=== PATIENT | female | born 1980 | race Caucasian/White ===

== ENCOUNTER 2016-09-24 23:22 | Inpatient (IN) | payer OTHER ==
[~2016-09-24] VITALS: Ht 162.6 cm; Wt 78.0 kg
[~2016-09-24 23:22] MED LIST: PRENTAB26 PO
[2016-09-25 00:01] VITALS: Ht 162.6 cm; Wt 78.0 kg
[2016-09-25] MEDS ORDERED: LACTATED RINGER'S 1000ML 1,000 ML IV PRN (00:22)
[2016-09-25 00:41] LABS: MEAN CELL VOLUME 94.4 fL (80-100); MEAN CORPUSCULAR HEMOGLOBIN 32.8 pg (25-34); MEAN CORPUSCULAR HGB CONC 34.7 g/dl (32-36); MEAN PLATELET VOLUME 10.6 fL (7.4-10.4); PLATELET COUNT 184 K/uL (130-400); WHITE BLOOD COUNT 10.83 K/uL (4.8-10.8)
[2016-09-25] MEDS ORDERED: OXYTOCIN 30 UNITS/500ML NSS IV PRN ×2 (08:30→16:15)
[2016-09-25] MEDS ORDERED: LACTATED RINGER'S 1000ML 500 ML IV PRN ×2 (08:30→11:43)
[2016-09-25] MEDS ORDERED: BUPIVACAINE 0.25% 30 ML VIAL ONE (11:04)
[2016-09-25] MEDS ORDERED: EpHEDrine SULFATE INJ 50 MG/ML AMP ONE (11:04)
[2016-09-25] MEDS ORDERED: FENTANYL 2MCG/ML ROPIV 1.25MG/ML 100ML BAG EPI ONE (11:05)
[2016-09-25] MEDS ORDERED: FENTANYL CITRATE INJ 50 MCG/1 ML 2 ML VIAL ONE (11:05)
[2016-09-25] MEDS: LACTATED RINGER'S 1000ML 1,000 ML IV SCH ×3 (11:39→15:40)
[2016-09-25] MEDS ORDERED: NALOXONE HCL INJ 1 MG in SODIUM CHLORIDE 0.9% 1000ML 1,000 ML IV PRN (11:43)
[2016-09-25] MEDS ORDERED: ONDANSETRON INJ 2 MG/ML 2 ML VIAL IV PRN (11:45)
[2016-09-25] MEDS ORDERED: NALBUPHINE HCL INJ 10 MG/ML AMP IV PRN (11:45)
[2016-09-25] MEDS ORDERED: FENTANYL 2MCG/ML ROPIV 1.25MG/ML 100ML BAG EPI PRN (11:45)
[2016-09-25] MEDS ORDERED: EpHEDrine SULFATE INJ 50 MG/ML AMP IV PRN (11:45)
[2016-09-25] MEDS ORDERED: NALOXONE HCL INJ 0.4 MG/1 ML VIAL/CARP IV PRN (11:45)
[2016-09-25] MEDS ORDERED: DiphenhydrAMINE HCL 50 MG/ML VIAL IV PRN (11:45)
[2016-09-25] MEDS ORDERED: METHYLERGONOVINE MALEATE 0.2 MG/ML AMP ONE (16:07)
[2016-09-25] MEDS ORDERED: METHYLERGONOVINE MALEATE 0.2 MG/ML AMP IM ONE (16:15)
[2016-09-25] MEDS ORDERED: OXYCODONE/ACETAMINOPHEN 5-325 TAB PO PRN (16:15)
[2016-09-25] MEDS ORDERED: LANOLIN OINT EXT PRN ×2 (16:15)
[2016-09-25] MEDS ORDERED: SUPERCREAM 0.870 % 15GM JAR EXT PRN (16:15)
[2016-09-25] MEDS ORDERED: IBUPROFEN 600 MG TAB PO PRN (16:15)
[2016-09-25] MEDS ORDERED: ACETAMINOPHEN/CODEINE 300/30MG TAB PO PRN ×2 (16:15)
[2016-09-25] MEDS ORDERED: BENZOCAINE 20% AER SPR 82.5 GM CAN EXT PRN (16:15)
[2016-09-25] MEDS ORDERED: ACETAMINOPHEN 325 MG TAB PO PRN (16:15)
[2016-09-25] MEDS ORDERED: HYDROCORTISONE ACETATE 25 MG SUPP PR PRN (16:15)
--- NOTE | 2016-09-25 17:26 | Anesthesia Procedure Note ---
Anesthesia Epidural Removal Nt Date & Time Sep 25, 2016 at 17:26 Notes Mental Status: alert / awake / arousable, participated in evaluation Nausea / Vomiting: adequately controlled Pain: adequately controlled Airway Patency, RR, SpO2: stable & adequate BP & HR: stable & adequate Hydration State: stable & adequate Neuraxial Anesthesia: was administered Anesthetic Complications: no major complications apparent, pt satisfied with anesthetic care Epidural: removed without complications, with tip intact
[2016-09-25 19:15] VITALS: BP 118/71; PULSE 74; TEMP 36.8; O2SAT 98
[2016-09-25] MEDS ORDERED: DOCUSATE SODIUM 100 MG CAP PO SCH (20:00)
[2016-09-26 00:30] VITALS: BP 104/64; PULSE 70; TEMP 36.8
[2016-09-26 03:55] VITALS: BP 103/66; PULSE 72; TEMP 36.4; O2SAT 99
[2016-09-26 05:58] LABS: HEMATOCRIT 31.7 % (37-47)
[2016-09-26] MEDS ORDERED: DOCUSATE SODIUM 100 MG CAP PO ONE (07:00)
--- NOTE | 2016-09-26 07:07 | DELIVERY SUMMARY ---
DATE OF OPERATION: 09/25/2016 The patient delivered a live infant female in occiput anterior presentation. There were 2 nuchal cords which were easily reduced. Infant was delivered, placed on mother's abdomen and cord clamped after 1 minute. The patient's weight is pending. Apgars 9 and 10. Placenta was spontaneously delivered. Inspection of the placenta shows a 3-vessel cord. Inspection of the perineum showed an intact perineum. Estimated blood loss was 500 mL. All instruments are removed from the vagina including sponges and retractors. Baby and mother are doing well in recovery. I attest to the content of the Intraoperative Record and any orders documented therein. Any exception s are noted below.
[2016-09-26 07:30] VITALS: BP 110/68; PULSE 68; TEMP 36.8
[2016-09-26] MEDS ORDERED: FERROUS SULFATE 325 MG TAB PO SCH (08:00)
[2016-09-26] MEDS ORDERED: PRENATAL VITAMIN TAB PO SCH (08:00)
--- NOTE | 2016-09-26 09:04 | OB/GYN Progress Note ---
[employer] Progress Note Date of Service Sep 26, 2016. Subjective conversation w/ patient, physical exam Ambulation: ambulating normally Voiding: no voiding problems Passing Gas: Yes Diet Tolerance: Regular Diet Lochia: Moderate Feeding Type: Bottle Feeding Pain: 2/10 Notes: Doing well, no concerns. Pain well controlled. Lochia decreasing. Tolerating regular diet. Ambulating without difficulty. Objective Vital Signs Date Time Temp Pulse Resp B/P (MAP) Pulse Ox O2 Delivery O2 Flow Rate FiO2 09/26/16 07:30 Room Air 09/26/16 07:30 36.8 68 20 110/68 (82) Room Air 09/26/16 03:55 36.4 72 16 103/66 (78) 99 Room Air 09/26/16 00:30 36.8 70 16 104/64 09/26/16 00:30 Room Air 09/25/16 19:15 36.8 74 18 118/71 (87) 98 Room Air 09/25/16 19:15 98 Room Air Physical Exam General Appearance: WELL-APPEARING Respiratory/Chest: chest non-tender, lungs clear Cardiovascular: regular rate, rhythm Abdomen: normal bowel sounds, soft Fundus: Firm Extremities: normal range of motion, non-tender, no calf tenderness Laboratory Results Last 24 Hours Test 09/26/16 05:46 Hemoglobin 10.5 g/dL Hematocrit 31.7 % Assessment and Plan Post- Day Number: 1 Continue Routine Care: -Continue routine care -D/C home today -F/U in 6 weeks.
--- NOTE | 2016-09-26 09:05 | Discharge Instructions ---
Discharge Instructions Date of Service Sep 26, 2016. Admission Reason for Admission: Check Rupture Discharge Discharge Diagnosis / Problem: Vaginal Delivery Discharge Goals Goal(s): Routine recovery after delivery Medications Continue Dispensed Medications: supercream, dermaplast, tucks, lansinoh Activity Recommendations Activity Limitations: per Instructions/Follow-up section . Instructions / Follow-Up Instructions / Follow-Up ACTIVITY RECOMMENDATIONS: * Gradual return to full activity over the next 2-3 weeks. * No lifting - nothing heavier than baby over the next 2-3 weeks. * Do not engage in vigorous exercise, sexual activity or sports until cleared by your physician. * Do not drive or operate any motorized equipment until cleared by your physician. * You may shower/bathe daily. BREAST CARE: If you are not breast feeding: * Wear a supportive bra 24 hours a day for one to two weeks. * Avoid stimulating your breasts and nipples as much as possible during the first few weeks after delivery. * When taking a shower, have the warm water hit your back, not breasts. * When your breasts feel full, apply ice packs. Usually three to four times a day helps ease the discomfort. * Take a mild pain medication (Tylenol/Motrin) when you are uncomfortable. If breast feeding: * Use breast milk to lubricate nipples. Lansinoh cream may be used for sore nipples. You do not need to remove cream prior to breast feeding. If using a different brand of cream, check the label for directions regarding removal of cream prior to nursing. * Wear a supportive bra. * If having problems with breasts or breast feeding, call a organizational consultant or your health care provider. EPISIOTOMY CARE: After delivery, if you have an episiotomy (stitches), the following steps will ease discomfort and aid healing. * For the first 24 hours after delivery, place ice packs next to your episiotomy to help reduce swelling. * After the first 24 hour-period, sitz baths, either portable or in the tub, are suggested. A shower with a shower arm sprayed over the episiotomy may be comforting. * Catherine care should be done after each voiding and bowel movement. Squirt warm water from a plastic bottle over the perineum (region of the body between the anus and urinary opening) and pat dry. * Use Dermoplast to ease discomfort. Shake container. [place] directly over the episiotomy. * Place a Tucks on a clean sanitary pad next to your episiotomy. OVER THE COUNTER MEDICATION: * For discomfort or pain, you may use Acetaminophen (Tylenol), Ibuprofen (Advil ), or Naproxen (Aleve) following the package directions. * For constipation you may use Colace following the package directions. SPECIAL CARE INSTRUCTIONS: When you are discharged from the hospital, it is important for you to follow the instructions listed below: * During the first week at home, you should be able to care for yourself and your baby. In addition, the usual light household activities are encouraged. * Limit your activities to the way you feel. Do not try to clean the house or move furniture. Be sensible. * If you actively engage in sports and have done so up until the time of your delivery, you may resume these activities as soon as you feel able. This may take up to one month or even longer. Use good judgment. * Continue to take your vitamins for at least six weeks after the of your baby. * Your diet need not be limited unless you were on a special diet before your delivery. Breast-feeding mothers need around 2500 calories per day and at least 64-80 ounces of fluid per day (8 to 10 glasses). * You should eat foods from the four major food groups. Crash diets or fad diets are to be avoided. Eating lean meats, fresh fruits and vegetables, low-fat dairy products, high fiber foods and a regular exercise program, will help you get back to your pre- weight without putting your health at risk. * Constipation is sometimes a problem after delivery. Take a mild laxative as needed. If breast feeding, Milk of Magnesia is acceptable to use. You may use a suppository or Fleets enema if no episiotomy. * A daily shower or tub bath is suggested. Be sure to thoroughly and gently dry the perineum. * A bloody vaginal discharge will usually continue until around four weeks post . A small amount of bleeding may continue for as long as six weeks. Vaginal discharge changes from the bright red bleeding after delivery to pink then brownish and finally yellowish-pink before becoming white and disappearing. * Bleeding may increase with activity. Your first period may come in 4-8 weeks. If you are breast feeding, your period may be delayed even longer. * [place] (sex) can begin whenever both you and your partner feel comfortable and do not have any form of genital infection. It is recommended that you wait until after your return appointment and discuss with your physician. If you have questions, please talk to your health care practitioner. A condom should be used to prevent infection and . * Foreplay, gentle intercourse and lubrication is very important the first several times to prevent pain. A water-based lubricant such as K-Y jelly or Astroglide may be used. * Tampons may be used six weeks after delivery. * Douching should be avoided for 6 weeks after delivery. * If you have RH negative blood and your baby is RH positive, you will receive RHOGAM by injection prior to discharge. The nurse will give you a card to keep with you that has the date and place that you received RHOGAM after delivery. * During your care, you had a Rubella screen done to check for the presence of rubella antibodies in your blood. If your test was negative, you will receive a Rubella vaccine prior to discharge. This vaccine may cause a fever, soreness at the injection site and flu-like symptoms. If these symptoms persist, notify your health care practitioner. is not advised for three months after a Rubella vaccine. There is a higher chance of having a baby with defects if conceived within three months of getting the vaccine. * If you were discharged 24 hours from delivery or before 48 hours: Visiting nurses will come to your home 48 hours after discharge to assess you and your baby. The visiting nurse will meet with you while you are in the hospital to arrange a time and get directions to your home. * Verbalizes understanding of car seat law as reviewed with patient nursing. * Car Seat hand-out given and reviewed with patient by nursing. * Shaken baby information reviewed with patient by nursing. Call you doctor if: * Heavy bleeding (saturating several pads an hour) or passing clots the size of your fist. * A fever >101 degrees F (38.3 degrees C) on two occasions four hours apart and/or chills. * Unusual pain in the pelvic or vaginal areas. * "Baby Blues" lasting longer than two weeks. If you have any questions or concerns, call your health care practitioner at . FOLLOW-UP VISIT: * Please call the office at to schedule a 6 week examination. It is important you keep this appointment. * It is important for you to make arrangements for either yearly or twice yearly check-ups thereafter. Current Hospital Diet Patient's current hospital diet: Regular OB Diet Discharge Diet Recommended Diet: Regular OB Diet Pending Studies Studies pending at discharge: no Medical Emergencies . Who to Call and When: Medical Emergencies: If at any time you feel your situation is an emergency, please call 911 immediately. . Non-Emergent Contact Non-Emergency issues call your: Primary Care Provider, Director Of Housing . . "Provider Documentation" section prepared by Heath Bowman. . VTE Core Measure Inpt VTE Proph given/why not?: Treatment not indicated
[2016-09-26 12:30] VITALS: BP 106/64; PULSE 72; TEMP 36.5
[2016-09-26 15:30] VITALS: BP 121/76; PULSE 75; TEMP 36.7
[2016-09-26 17:00] VITALS: BP_DIAS 76; PULSE 75; TEMP 36.7
[2016-09-26] MEDS ORDERED: BISACODYL 5 MG TABEC PO SCH (20:00)
[2016-09-27] MEDS ORDERED: BISACODYL 10 MG SUPP PR PRN (07:00)
== END 2016-09-26 17:08 | disposition home or self-care (01) | DRG 775 ==
LOC: C.LD 23:22 → C.OPB 23:22 → C.LD 09-25 00:23 → C.OPB 09-25 00:23 → C.OBG 09-25 18:35
PROVIDERS: ADMIT Obstetrics & Gynecology; ATTEND Obstetrics & Gynecology
PROC: 10E0XZZ Delivery of Products of Conception, External Approach (ICD-10-PCS; principal; 2016-09-25)
DX: O69.81X0 Labor and delivery complicated by cord around neck, without compression, not applicable or unspecified (principal); Z3A.41 41 weeks gestation of pregnancy; Z37.0 Single live birth

== ENCOUNTER 2024-12-16 21:38 | Inpatient (IN) ==
[2024-12-16 22:20] LABS: Hematocrit (blood only) 36.3 % (37.0-47.0); Hemoglobin 12.0 g/dl (12.0-16.0); Immature Granulocytes # (auto) 0.02 K/uL (0.01-0.20); Immature Granulocytes % (auto) 0.2 %; Mean Corpuscular Hemoglobin 30.3 pg (25.0-34.0); Mean Corpuscular Volume 91.7 fL (80.0-100.0); Platelet Count 189 K/uL (130-400); RDW Standard Deviation 41.0 fL (36.4-46.3); Red Blood Count 3.96 M/uL (4.20-5.40); White Blood Count 8.49 K/ul (4.8-10.8)
--- NOTE | 2024-12-16 22:21 | Emergency Department Note ---
Impression & Plan Biliary colic Admission ED Provider Note HPI: History obtained from patient. The patient is a 44-year-old female who presents emergency department with chief complaint of right upper quadrant pain that has been ongoing for the past several hours. Patient states that she has been having intermittent episodes of this type of pain for over a month now. Patient states she is actually scheduled for an elective cholecystectomy in early December with Dr. Fuentes. On arrival here to the ED the patient is hemodynamically stable, she otherwise appears to be in no acute distress. Patient states she has had nausea with the pain but she has not yet had any vomiting. ROS: - Per HPI Differential Diagnosis: Acute cholecystitis, biliary colic, kidney stone, urinary tract infection/pyelonephritis, choledocholithiasis, amongst other potential pathologies. *Outpatient medications and allergy history reviewed. PE: General: Alert HEENT: Normocephalic, trachea midline Eyes: Extraocular eye movement is intact, no scleral erythema Pulmonary: Clear to auscultation bilaterally, no wheezing Cardio: Regular rate and rhythm GI: Abdomen is soft to palpation, moderate tenderness in the right upper quadrant to palpation without guarding or rigidity : No suprapubic tenderness MSK: No evidence of trauma or malformation of the extremities, no edema Skin: No evidence of rash Neuro: Alert, no focal deficits Psychiatric: Cooperative INDEPENDENT INTERPRETATIONS: information services assistant: (As interpreted by myself): - An order was placed for continuous cardiac monitoring - Patient was noted to be in sinus rhythm with a rate of 75 Interventions provided in ED: - IV fluid bolus, IV morphine, IV Zofran Medical Decision Making: IV was established and lab work obtained, patient was placed on mill oiler. Lab work shows no leukocytosis, hemoglobin is normal, platelet count is normal, CMP does not show any evidence of any critical findings, bilirubin is normal, there is no transaminitis, lipase is normal, testing is negative. Urinalysis does not show any evidence of any obvious infection. There is trace blood. Ultrasound imaging of the gallbladder shows pericholecystic fluid with mild dilatation of the common bile duct and cholelithiasis noted. On my reevaluation the patient states her pain is improved following the above medications. She still does have some discomfort. Case was discussed with the on-call general surgeon, Dr. Fuentes, who the patient is previously seen as an outpatient. He is agreeable for consultation and the patient will be admitted to the medicine service for further workup and likely MRCP. [facility] hospitalist service was consulted for admission. Consultants/Discussions held with other healthcare providers: - Hospitalist, Dr. Purdy Disposition discussion held by myself with: - Patient Diagnosis: 1. Abdominal pain, acute 2. Biliary colic, acute 3. Cholelithiasis, chronic Disposition: Admission Manuelito Schilling DO Emergency Medicine Past Med/Surg History Problem List (Updated 12/17/24 @ 01:08 by Manuelito Schilling DO) Biliary colic (Acute) Retained placenta (Acute 11/13/10) Social History Smoking Status: Never smoker Preferred Language: Kinyarwanda Feels Safe at Home: Yes Allergies Allergies Allergy/AdvReac Type Severity Reaction Status Date / Time sumatriptan Allergy Severe THROAT Verified 09/26/16 08:05 FEELS TIGHT Home Meds Home Medications Medication Instructions Recorded Confirmed Multivit/Min/Iron/Fol Ac/Pren 1 tab PO DAILY ##0 04/23/09 ( Vitamin) Results & Data (ED) Vital Signs Vital Signs - 24 hr 12/16/24 21:49 12/16/24 22:24 12/16/24 22:47 Temperature 36.7 C Temperature Source Temporal Artery Scan Pulse Rate 66 75 83 Respiratory Rate 16 20 Respiratory Effort / Characteristics Non-Labored Spontaneous Respiratory Depth Normal Respiratory Pattern Regular Blood Pressure 138/69 111/65 Blood Pressure Mean 92 80 Pulse Oximetry 99 100 Oxygen Delivery Method Room Air Sepsis Recent Fever Within 48 Hours No Sepsis New/Unexplained Change in Mental Status N/A Sepsis Action Taken by Nursing No Action Required 12/16/24 23:55 Temperature Temperature Source Pulse Rate 74 Respiratory Rate 16 Respiratory Effort / Characteristics Respiratory Depth Respiratory Pattern Blood Pressure 105/63 Blood Pressure Mean 77 Pulse Oximetry 100 Oxygen Delivery Method Sepsis Recent Fever Within 48 Hours Sepsis New/Unexplained Change in Mental Status Sepsis Action Taken by Nursing Laboratory Data 12/16/24 22:03 12/16/24 22:03 Lab Results 12/16/24 Range/Units 22:03 WBC 8.49 (4.8-10.8) K/ul RBC 3.96 L (4.20-5.40) M/uL Hgb 12.0 (12.0-16.0) g/dl Hct 36.3 L (37.0-47.0) % MCV 91.7 (80.0-100.0) fL MCH 30.3 (25.0-34.0) pg MCHC 33.1 (32.0-36.0) g/dL RDW Std Deviation 41.0 (36.4-46.3) fL RDW Coeff of Alfredo 12.2 (11.5-14.5) % Plt Count 189 (130-400) K/uL MPV 10.8 (9.4-12.4) fL Immature Gran % (Auto) 0.2 % Neut % (Auto) 64.0 % Lymph % (Auto) 25.8 % [place] % (Auto) 6.9 % Eos % (Auto) 2.4 % Baso % (Auto) 0.7 % Neut # (Auto) 5.43 (1.40-6.50) K/uL Lymph # (Auto) 2.19 (1.20-3.40) K/uL [place] # (Auto) 0.59 (0.11-0.59) K/uL Eos # (Auto) 0.20 (0.00-0.50) K/uL Baso # (Auto) 0.06 (0.00-0.20) K/uL Immature Gran # (Auto) 0.02 (0.01-0.20) K/uL Sodium 138 (136-145) mmol/L Potassium 3.6 (3.5-5.1) mmol/L Chloride 108 H (98-107) mmol/L Carbon Dioxide 25 (21-32) mmol/L Anion Gap 5 (3-11) BUN 10 (6-23) mg/dl Creatinine 0.79 (0.6-1.2) mg/dl Est Cr Clr Drug Dosing 78.5 ml/min eGFR 94.53 BUN/Creatinine Ratio 12.7 (10-20) Glucose 129 H (70-99(Fasting)) mg/dl Calcium 8.8 (8.6-10.3) mg/dl Total Bilirubin 0.5 (0.2-1.0) mg/dl AST 25 (13-39) U/L ALT 12 (7-52) U/L Alkaline Phosphatase 45 (34-104) U/L Total Protein 6.9 (6.0-8.3) gm/dl Albumin 3.9 (3.4-5.0) gm/dl Globulin 3.0 (2.5-4.0) gm/dl Albumin/Globulin Ratio 1.3 (0.9-2) Lipase 30 (11-82) U/L HCG, Qual Negative (Negative) Urine Color Yellow Urine Appearance Clear (Clear) Urine pH 6.0 (4.5-7.5) Ur Specific [place] 1.025 (1.000-1.030) Urine Protein Negative (Negative) Urine Glucose (UA) Negative (Negative) Urine Ketones Negative (Negative) Urine Blood Trace-intact H (Negative) Urine Nitrite Negative (Negative) Urine Bilirubin Negative (Negative) Urine Urobilinogen Negative (Negative) Ur Leukocyte Esterase Negative (Negative) Urine WBC (Auto) 0-5 (0-5) /hpf Urine RBC (Auto) 3-5 H (0-2) /hpf U Hyaline Cast (Auto) 0-2 (0-2) /lpf U Epithel Cells (Auto) 6-10 H (0-2) /hpf Urine Bacteria (Auto) None Seen (None Seen) Calcium Oxalate Crystal Present A (None Prsent) Urine Comment Administered Medications Discontinued Medications Sodium Chloride (Nss) 500 mls @ 999 mls/hr IV .Q31M STA Stop: 12/16/24 22:43 Last Infusion: 12/16/24 22:59 Dose: Infused Documented By: Admin: 12/16/24 22:27 Dose: 999 mls/hr Documented By: OSIEL Morphine Sulfate (Morphine Sulfate 4 Mg/Ml 1 Ml Carp\Vial) 4 mg IV NOW STA Stop: 12/16/24 22:20 Last Admin: 12/16/24 22:25 Dose: 4 mg Documented By: OSIEL Ondansetron HCl (Ondansetron Inj 2 Mg/Ml 2 Ml Vial) 4 mg IV NOW STA Stop: 12/16/24 22:20 Last Admin: 12/16/24 22:25 Dose: 4 mg Documented By: OSIEL Imaging Data Radiologist's Impression: Gallbladder Ultrasound 12/16/24 22:19 Exam(s): US GALLBLADDER EXAM: US Abdomen Limited, Right Upper Quadrant CLINICAL HISTORY: Reason for exam: RUQ pain. OTHER: Other Notes: CBD: PROMINENT, measured UP TO 7.5 mm. RT KID: NO HYDRO. ?STONE WITH TWINKLE COLOR ARTIFACT MP MEASURED 3 mm. TECHNIQUE: Real-time ultrasound of the right upper quadrant with image documentation. COMPARISON: No relevant prior studies available. FINDINGS: Liver: The liver is enlarged and of increased echogenicity. There is a small cluster of cysts noted in the right lobe of the liver adjacent to the gallbladder. It measures 1.6 cm in size.. There is some intrahepatic biliary ductal dilatation. Gallbladder: The gallbladder is distended. There are gallstones within the gallbladder. The gallbladder wall measured 2.7 mm. There is some pericholecystic fluid.. Common bile duct: The common bile duct measured 7.5 mm.. Pancreas: Pancreatic duct is prominent at 3 mm.. Right kidney: There is a 3 mm echogenic focus within the kidney.. No hydronephrosis. IMPRESSION: The gallbladder is distended containing calculi. There is some pericholecystic fluid present. Common bile duct is mildly dilated at 7.5 mm. There is some intrahepatic biliary ductal dilatation. Pancreatic duct is prominent at 3 mm. The liver is enlarged and of increased echogenicity which may be due to fatty infiltration and/or hepatocellular disease. There is a small cluster of cysts noted in the right lobe of the liver adjacent to the gallbladder. There is a possible 3 mm calcification in the right kidney. No evidence of hydronephrosis. Electronically signed by: Kj Fountain MD 12/17/24 00:45 AM Discharge Plan Visit Data Chief Complaint: Abdominal Pain Stated Complaint: GALLBLADDER ATTACK SINCE ~7:30 PM ED Provider: Manuelito Schilling Discharge Problem: Biliary colic Patient Disposition: Admitted As Inpatient Condition: Fair Forms Stand Alone Forms: [employer] Prescriptions Prescriptions: No Action Multivit/Min/Iron/Fol Ac/Pren ( Vitamin) tablet 1 tab PO DAILY Qty: 0 Referrals Referrals: PCP,NO [Physician] -
[2024-12-16] MEDS: MoRPHine SULFATE 4 MG/ML 1 ML CARP\\VIAL IV STA (22:25)
[2024-12-16] MEDS: ONDANSETRON INJ 2 MG/ML 2 ML VIAL IV STA (22:25)
[2024-12-16] MEDS: SODIUM CHLORIDE 0.9% 500 ML IV STA (22:27)
[2024-12-16 22:32] LABS: Appearance Urine Clear (Clear); Glucose Urine UA Negative (Negative)
[2024-12-16 22:39] LABS: Alanine Aminotransferase 12.0 U/L (7-52); Albumin Globulin Ratio 1.3 (0.9-2); Albumin Level 3.9 gm/dl (3.4-5.0); Alkaline Phosphatase 45.0 U/L (34-104); Anion Gap 5.0 (3-11); Bilirubin,Total 0.5 mg/dl (0.2-1.0); Blood Urea Nitrogen 10.0 mg/dl (6-23); Calcium 8.8 mg/dl (8.6-10.3); Carbon Dioxide 25.0 mmol/L (21-32); Chloride 108.0 mmol/L (98-107); Creatinine Clr Calc Pharmacy 78.5 ml/min; Globulin 3.0 gm/dl (2.5-4.0); Glucose 129.0 mg/dl (70-99(Fasting)); Lipase 30.0 U/L (11-82); Potassium 3.6 mmol/L (3.5-5.1); Sodium 138.0 mmol/L (136-145); Total Protein 6.9 gm/dl (6.0-8.3)
[2024-12-16 22:45] LABS: Bacteria Urine Automated None Seen (None Seen); Cast Urine Automated 0-2 /lpf (0-2); WBC Urine Automated 0-5 /hpf (0-5)
[2024-12-16 23:25] LABS: Pregnancy Test, Serum Negative (Negative)
--- NOTE | 2024-12-17 00:46 | Ultrasound Report ---
Exam(s): US GALLBLADDER EXAM: US Abdomen Limited, Right Upper Quadrant CLINICAL HISTORY: Reason for exam: RUQ pain. OTHER: Other Notes: CBD: PROMINENT, measured UP TO 7.5 mm. RT KID: NO HYDRO. ?STONE WITH TWINKLE COLOR ARTIFACT MP MEASURED 3 mm. TECHNIQUE: Real-time ultrasound of the right upper quadrant with image documentation. COMPARISON: No relevant prior studies available. FINDINGS: Liver: The liver is enlarged and of increased echogenicity. There is a small cluster of cysts noted in the right lobe of the liver adjacent to the gallbladder. It measures 1.6 cm in size.. There is some intrahepatic biliary ductal dilatation. Gallbladder: The gallbladder is distended. There are gallstones within the gallbladder. The gallbladder wall measured 2.7 mm. There is some pericholecystic fluid.. Common bile duct: The common bile duct measured 7.5 mm.. Pancreas: Pancreatic duct is prominent at 3 mm.. Right kidney: There is a 3 mm echogenic focus within the kidney.. No hydronephrosis. IMPRESSION: The gallbladder is distended containing calculi. There is some pericholecystic fluid present. Common bile duct is mildly dilated at 7.5 mm. There is some intrahepatic biliary ductal dilatation. Pancreatic duct is prominent at 3 mm. The liver is enlarged and of increased echogenicity which may be due to fatty infiltration and/or hepatocellular disease. There is a small cluster of cysts noted in the right lobe of the liver adjacent to the gallbladder. There is a possible 3 mm calcification in the right kidney. No evidence of hydronephrosis. Electronically signed by: Kj Fountain MD 12/17/24 00:45 AM
[2024-12-17] MEDS ORDERED: ACETAMINOPHEN 325 MG TAB PO PRN (01:25)
[2024-12-17] MEDS ORDERED: PROMETHAZINE 6.25 MG/50.25 ML BAG IV PRN (01:25)
--- NOTE | 2024-12-17 02:55 | History & Physical Report ---
Date of Service December 17, 2024 Assessment & Plan (1) Acute calculous cholecystitis: Plan: Assessment and plan below following discussion of case with ED provider and reviewing patient history/pertinent normal/abnormal diagnostic test results. Recurrent calculous cholecystitis CBD dilatation on imaging rule out biliary tract obstruction No sepsis for now Hepatomegaly incidental finding on imaging hx PSVT mild MR bronchial asthma, stable Hyperglycemia rule out DM past tobacco abuse Admit to [facility] General Surgery consult re: recurrent cholecystitis (ED provider already in touch with Dr. Fuentes who recommends MRCP for now given CBD dilatation on ultrasound.) Keep patient n.p.o. in anticipation of procedure Outpatient GI consult for hepatomegaly workup Check hemoglobin A1c DVT prophylaxis. SCDs re: possible procedure Full code Text document was generated using Apportable voice recognition software. It may contain grammatical or spelling errors. Kindly contact undersigned for clarification of any documentation item in question. History of Present Illness Chief Complaint: Right upper quadrant pain Primary Care Provider: Layo Waddell DO History obtained from patient and records. Medical history significant for PSVT, mild MR, bronchial asthma, migraine, GERD, cholelithiasis, past tobacco abuse. Patient dealing with right upper quadrant pain the last couple of months. Found to have early acute cholecystitis on consultation at [facility] ER last month. Patient discharged on antibiotic course. Outpatient General Surgery referral recommended. Patient [place] [facility] [place] 3 weeks ago. Laparoscopic cholecystectomy scheduled next month. Patient advised to go to ER with recurrent/symptoms. Patient had worsening RUQ discomfort reminiscent of gallstone attack from last night. Some nausea without emesis. No fever, no chills. Denies fatty food intake. Denies chest pain, SOB. Medical History as above Surgical History : Dental surgery, oophorectomy/salpingectomy Family History : Lung cancer, bronchial asthma, colon cancer, thyroid cancer, breast cancer Personal/Social history : Past tobacco abuse, no EtOH intake, [employer] employee Allergies Allergy/AdvReac Type Severity Reaction Status Date / Time sumatriptan Allergy Severe THROAT Verified 12/17/24 01:27 FEELS TIGHT Home Medications Medication Instructions Recorded Confirmed Type onabotulinumtoxinA 200 unit 155 unit .EVERY 90 DAYS 12/17/24 12/17/24 History solution for injection (Botox) Past Med/Surg History Problem List Acute calculous cholecystitis Biliary colic (Acute) Retained placenta (Acute 11/13/10) Social History Smoking Status: Former smoker Tobacco Type: Cigarettes Cigarettes Per Day: half a pack to a pack a day; Smoking End Date: 2014; Second Hand Exposure: No; Do You Dip or Chew Tobacco: No; Tobacco Cessation Education Requested by Patient: No Hx Alcohol Use: No Hx Substance Use: No Preferred Language: Cameroonian Communication Ability: Effective Geoint Analyst Required: No Beliefs That Will Affect Care: None Current Living Situation: Spouse and Family Other Information That Helps Us Care for You: No Feels Safe at Home: Yes Safety Concerns: Feels Safe At This Time Assistive Devices: None Review of Systems Review of Systems: As per HPI, all other systems reviewed and negative Physical Exam Physical Exam: GENERAL: Comfortable, pleasant, no respiratory distress SKIN: Normal color, warm HEENT: [place] palpebral conjunctivae, no ptosis, dry buccal mucosa NECK : Supple, no tenderness CHEST : CTA, no tenderness HEART : RRR, no obvious murmurs ABDOMEN: Some distention, RUQ tenderness EXTREMITIES : No LE swelling/tenderness, palpable pulses, no other conspicuous deformities noted NEUROLOGIC : Coherent, no facial asymmetry, no other gross focality Results & Data Results & Data Vital Signs (Past 12 Hours) Vital Signs Temp Pulse Resp BP Pulse Ox O2 Del Method 12/17/24 02:45 72 16 109/72 98 12/17/24 02:30 68 12/17/24 01:00 80 20 111/54 L 96 12/16/24 23:55 74 16 105/63 100 12/16/24 22:47 83 20 111/65 100 12/16/24 22:24 75 12/16/24 21:49 36.7 C 66 16 138/69 99 Room Air Laboratory Results Laboratory Results WBC 8.49 K/ul (4.8-10.8) 12/16/24 22:03 RBC 3.96 M/uL (4.20-5.40) L 12/16/24 22:03 Hgb 12.0 g/dl (12.0-16.0) 12/16/24 22:03 Hct 36.3 % (37.0-47.0) L 12/16/24 22:03 MCV 91.7 fL (80.0-100.0) 12/16/24 22:03 MCH 30.3 pg (25.0-34.0) 12/16/24 22: MCHC 33.1 g/dL (32.0-36.0) 12/16/24 22:03 RDW Std Deviation 41.0 fL (36.4-46.3) 12/16/24: RDW Coeff of Alfredo 12.2 % (11.5-14.5) 12/16/24: Plt Count 189 K/uL (130-400) 12/16/24 22:03 MPV 10.8 fL (9.4-12.4) 12/16/24:03 Immature Gran % (Auto) 0.2 % 12/16/24: Neut % (Auto) 64.0 % 12/16/24: Lymph % (Auto) 25.8 % 12/16/24: [place] % (Auto) 6.9 % 12/16/24: Eos % (Auto) 2.4 % 12/16/24 22:03 Baso % (Auto) 0.7 % 12/16/24:03 Neut # (Auto) 5.43 K/uL (1.40-6.50) 12/16/24 22:03 Lymph # (Auto) 2.19 K/uL (1.20-3.40) 12/16/24 22:03 [place] # (Auto) 0.59 K/uL (0.11-0.59) 12/16/24: Eos # (Auto) 0.20 K/uL (0.00-0.50) 12/16/24 22:03 Baso # (Auto) 0.06 K/uL (0.00-0.20) 12/16/24 22: Immature Gran # (Auto) 0.02 K/uL (0.01-0.20) 12/16/24 22:03 Sodium 138 mmol/L (136-145) 12/16/24 22:03 Potassium 3.6 mmol/L (3.5-5.1) 12/16/24 22:03 Chloride 108 mmol/L (98-107) H 12/16/24 22:03 Carbon Dioxide 25 mmol/L (21-32) 12/16/24 22:03 Anion Gap 5 (3-11) 12/16/24 22:03 BUN 10 mg/dl (6-23) 12/16/24 22: Creatinine 0.79 mg/dl (0.6-1.2) 12/16/24 22: Est Cr Clr Drug Dosing 78.5 ml/min 12/16/24 22: eGFR 94.53 12/16/24 22: BUN/Creatinine Ratio 12.7 (10-20) 12/16/24: Glucose 129 mg/dl (70-99(Fasting)) H 12/16/24: Calcium 8.8 mg/dl (8.6-10.3) 12/16/24: Total Bilirubin 0.5 mg/dl (0.2-1.0) 12/16/24: AST 25 U/L (13-39) 12/16/24: ALT 12 U/L (7-52) 12/16/24: Alkaline Phosphatase 45 U/L (34-104) 12/16/24 22: Total Protein 6.9 gm/dl (6.0-8.3) 12/16/24 22: Albumin 3.9 gm/dl (3.4-5.0) 12/16/24: Globulin 3.0 gm/dl (2.5-4.0) 12/16/24: Albumin/Globulin Ratio 1.3 (0.9-2) 12/16/24: Lipase 30 U/L (11-82) 12/16/24: HCG, Qual Negative (Negative) 12/16/24 22: Urine Color Yellow 12/16/24: Urine Appearance Clear (Clear) 12/16/24 22: Urine pH 6.0 (4.5-7.5) 12/16/24: Ur Specific [place] 1.025 (1.000-1.030) 12/16/24 22: Urine Protein Negative (Negative) 12/16/24: Urine Glucose (UA) Negative (Negative) 12/16/24: Urine Ketones Negative (Negative) 12/16/24: Urine Blood Trace-intact (Negative) H 10/20/25 22:03 Urine Nitrite Negative (Negative) 12/16/24 22:03 Urine Bilirubin Negative (Negative) 12/16/24 22:03 Urine Urobilinogen Negative (Negative) 12/16/24 22:03 Ur Leukocyte Esterase Negative (Negative) 12/16/24 22:03 Urine WBC (Auto) 0-5 /hpf (0-5) 12/16/24 22:03 Urine RBC (Auto) 3-5 /hpf (0-2) H 12/16/24 22:03 U Hyaline Cast (Auto) 0-2 /lpf (0-2) 12/16/24 22:03 U Epithel Cells (Auto) 6-10 /hpf (0-2) H 12/16/24 22:03 Urine Bacteria (Auto) None Seen (None Seen) 12/16/24 22: Calcium Oxalate Crystal Present (None Prsent) A 12/16/24 22:03 Urine Comment 12/16/24: Impressions Gallbladder Ultrasound 12/16/24 22:19 Exam(s): US GALLBLADDER EXAM: US Abdomen Limited, Right Upper Quadrant CLINICAL HISTORY: Reason for exam: RUQ pain. OTHER: Other Notes: CBD: PROMINENT, measured UP TO 7.5 mm. RT KID: NO HYDRO. ?STONE WITH TWINKLE COLOR ARTIFACT MP MEASURED 3 mm. TECHNIQUE: Real-time ultrasound of the right upper quadrant with image documentation. COMPARISON: No relevant prior studies available. FINDINGS: Liver: The liver is enlarged and of increased echogenicity. There is a small cluster of cysts noted in the right lobe of the liver adjacent to the gallbladder. It measures 1.6 cm in size.. There is some intrahepatic biliary ductal dilatation. Gallbladder: The gallbladder is distended. There are gallstones within the gallbladder. The gallbladder wall measured 2.7 mm. There is some pericholecystic fluid.. Common bile duct: The common bile duct measured 7.5 mm.. Pancreas: Pancreatic duct is prominent at 3 mm.. Right kidney: There is a 3 mm echogenic focus within the kidney.. No hydronephrosis. IMPRESSION: The gallbladder is distended containing calculi. There is some pericholecystic fluid present. Common bile duct is mildly dilated at 7.5 mm. There is some intrahepatic biliary ductal dilatation. Pancreatic duct is prominent at 3 mm. The liver is enlarged and of increased echogenicity which may be due to fatty infiltration and/or hepatocellular disease. There is a small cluster of cysts noted in the right lobe of the liver adjacent to the gallbladder. There is a possible 3 mm calcification in the right kidney. No evidence of hydronephrosis. Electronically signed by: Kj Fountain MD 12/17/24 00:45 AM
[2024-12-17] MEDS ORDERED: LORazepam 0.5 MG TAB PO PRN (03:19)
[2024-12-17] MEDS ORDERED: ACETAMINOPHEN 500 MG TAB PO PRN (03:19)
[2024-12-17] MEDS: NSS + 20MEQ KCL 20 MEQ/1,000 ML BAG IV ONE (03:31)
--- NOTE | 2024-12-17 05:26 | Magnetic Resonance Report ---
EXAM: MR MRCP CLINICAL HISTORY: cbd dilat TECHNIQUE: Multiplanar multisequence magnetic resonance imaging of the abdomen without intravenous contrast. COMPARISON: None. FINDINGS: Liver: Normal size and morphology. Approximately 11x 9mm T2 hyperintense lesion in subcapsular region of segment V of liver adjacent to lavinia gall bladder fossa. Homogeneous signal intensity on T2-weighted images. No focal hepatic lesions. Gallbladder: Well distended with evidence of focal 3 to 4mm T2 hypointense filling defects within and shows mild wall thickening and pericholecystic fat stranding. There is thin rim of fluid surrounding gallbladder Bile Ducts: Intrahepatic and extrahepatic bile ducts are normal in caliber. Common bile duct is normal in caliber with no evidence of strictures or filling defects. No evidence of choledocholithiasis. Pancreas: Normal size and contour. Homogeneous signal intensity on T2-weighted images. No masses or cystic lesions. Pancreatic Duct: Pancreatic duct is normal in caliber. No evidence of ductal dilatation or filling defects. Spleen: Normal size and appearance. Homogeneous signal intensity. Kidneys: Normal size, shape, and position of both kidneys. Homogeneous signal intensity on T2-weighted images. No renal stones, masses, or hydronephrosis. Adrenal Glands: Normal size and morphology bilaterally. No adrenal masses. Surrounding Structures: No evidence of free fluid or abnormal fluid collections in the abdomen. Normal appearance of the visualized bowel loops. IMPRESSION: Features of acute calculus cholecystitis with no obvious perforation. No intra or extrahepatic biliary ductal dilatation. T2 hyperintense lesion in segment V of liver adjacent to gallbladder fossa - likely hepatic cyst Electronically signed by Eder Saha 12-17-2024 05:25 AM
[2024-12-17 05:58] LABS: Hematocrit (blood only) 34.4 % (37.0-47.0); Hemoglobin 11.5 g/dl (12.0-16.0); Immature Granulocytes # (auto) 0.02 K/uL (0.01-0.20); Immature Granulocytes % (auto) 0.3 %; Mean Corpuscular Hemoglobin 31.3 pg (25.0-34.0); Mean Corpuscular Volume 93.5 fL (80.0-100.0); Platelet Count 158 K/uL (130-400); RDW Standard Deviation 41.9 fL (36.4-46.3); Red Blood Count 3.68 M/uL (4.20-5.40); White Blood Count 6.18 K/ul (4.8-10.8)
[2024-12-17 06:16] LABS: Alanine Aminotransferase 118.0 U/L (7-52); Albumin Globulin Ratio 1.2 (0.9-2); Albumin Level 3.3 gm/dl (3.4-5.0); Alkaline Phosphatase 57.0 U/L (34-104); Anion Gap 3.0 (3-11); Bilirubin,Total 0.6 mg/dl (0.2-1.0); Blood Urea Nitrogen 9.0 mg/dl (6-23); Calcium 8.3 mg/dl (8.6-10.3); Carbon Dioxide 25.0 mmol/L (21-32); Chloride 110.0 mmol/L (98-107); Creatinine Clr Calc Pharmacy 92.5 ml/min; Globulin 2.8 gm/dl (2.5-4.0); Glucose 95.0 mg/dl (70-99(Fasting)); Potassium 3.8 mmol/L (3.5-5.1); Sodium 138.0 mmol/L (136-145); Total Protein 6.1 gm/dl (6.0-8.3)
[2024-12-17] MEDS: PIPERACILLIN/TAZOBACTAM 4.5 GM/100 ML BAG IV STA (06:53)
[2024-12-17 07:15] LABS: Hemoglobin A1C 5.0 % (4.5-5.6)
--- NOTE | 2024-12-17 08:31 | Surgery Consultation ---
Date of Consultation December 17, 2024 Assessment & Plan (1) Acute calculous cholecystitis: 44 year old with biliary colic who presented to ED with several hours of RUQ pain with associated nausea. US showing stones and cholecystitis. MRCP done for elevated LFTS and dilated CBD on ultrasound, which was negative for choledocholithiasis. RUQ pain on examination but abdomen soft. Discussed laparoscopic cholecystectomy with patient. Discussed risks , expected recovery, and restrictions. May need outpatient follow-up of liver enzymes. Informed consent obtained, keep NPO, OR Tylenol for headache now, IV fluids, continue medical management. Discussed with Dr. Fuentes who agrees with above. See addendum for further recommendations. History of Present Illness Reason for Consultation: Acute calculous cholecystitis Requesting Physician: Manuelito Schilling MD Attending Physician: John Bruno MD History of Present Illness Lucy is a 44 year old female with history of biliary colic who presented to ED with complaint of right upper quadrant abdominal pain with associated nausea but no vomiting lasting for several hours with no improvement. She is scheduled for elective cholecystectomy with Dr. Fuentes in December. States pain would not let up. No associated fever, chills, swats, chest pain, shortness of breath. Did have episode of diarrhea last evening. No blood in stools or difficulty urinating. Currently stating pain is better, low at this time. Has a headache. Allergies Allergy/AdvReac Type Severity Reaction Status Date / Time sumatriptan Allergy Severe THROAT Verified 12/17/24 01:27 FEELS TIGHT Home Medications Medication Instructions Recorded Confirmed Type onabotulinumtoxinA 200 unit 155 unit .EVERY 90 DAYS 12/17/24 12/17/24 History solution for injection (Botox) Patient History Social History Smoking Status: Former smoker Tobacco Type: Cigarettes Cigarettes Per Day: half a pack to a pack a day; Smoking End Date: 2014; Second Hand Exposure: No; Do You Dip or Chew Tobacco: No; Tobacco Cessation Education Requested by Patient: No Hx Alcohol Use: No Hx Substance Use: No Preferred Language: Omani Communication Ability: Effective Medical Educator Required: No Beliefs That Will Affect Care: None Current Living Situation: Spouse and Family Other Information That Helps Us Care for You: No Feels Safe at Home: Yes Safety Concerns: Feels Safe At This Time Assistive Devices: None Review of Systems Review of Systems: All systems reviewed & are unremarkable except as noted in HPI & below Physical Exam Constitutional: WD/WN, vitals as above cooperative and comfortable; no acute distress and not ill appearing Respiratory: normal respiratory effort, lungs clear to auscultation Cardiovascular: RRR, no murmur, no edema Gastrointestinal (Abdomen): Inspection/Auscultation: abdomen normal to inspection; abdomen not distended Percussion/Palpation: + abdomen tender (RUQ ) and abdomen soft; no guarding, abdomen not rigid and abdomen not firm Skin: no rashes, warm and dry no jaundice Psychiatric: Orientation: alert and oriented x 3 Results & Data Vital Signs (Past 12 Hours) Vital Signs Temp Pulse Pulse Resp BP BP Pulse Ox 12/17/24 07:15 67 12/17/24 06:28 60 17 94/57 L 98 12/17/24 02:45 72 16 109/72 98 12/17/24 02:30 68 12/17/24 01:00 80 20 111/54 L 96 12/16/24 23:55 74 16 105/63 100 12/16/24 22:47 83 20 111/65 100 12/16/24 22:24 75 12/16/24 21:49 36.7 C 66 16 138/69 99 O2 Del Method 12/17/24 07:15 12/17/24 06:28 Room Air 12/17/24 02:45 12/17/24 02:30 12/17/24 01:00 12/16/24 23:55 12/16/24 22:47 12/16/24 22:24 12/16/24 21:49 Room Air Laboratory Results 12/17/24 12/16/24 Range/Units 05:24 22:03 WBC 6.18 8.49 (4.8-10.8) K/ul RBC 3.68 L 3.96 L (4.20-5.40) M/uL Hgb 11.5 L 12.0 (12.0-16.0) g/dl Hct 34.4 L 36.3 L (37.0-47.0) % MCV 93.5 91.7 (80.0-100.0) fL MCH 31.3 30.3 (25.0-34.0) pg MCHC 33.4 33.1 (32.0-36.0) g/dL RDW Std Deviation 41.9 41.0 (36.4-46.3) fL RDW Coeff of Alfredo 12.1 12.2 (11.5-14.5) % Plt Count 158 189 (130-400) K/uL MPV 10.9 10.8 (9.4-12.4) fL Immature Gran % (Auto) 0.3 0.2 % Neut % (Auto) 62.2 64.0 % Lymph % (Auto) 26.2 25.8 % Person % (Auto) 9.5 6.9 % Eos % (Auto) 1.5 2.4 % Baso % (Auto) 0.3 0.7 % Neut # (Auto) 3.84 5.43 (1.40-6.50) K/uL Lymph # (Auto) 1.62 2.19 (1.20-3.40) K/uL Person # (Auto) 0.59 0.59 (0.11-0.59) K/uL Eos # (Auto) 0.09 0.20 (0.00-0.50) K/uL Baso # (Auto) 0.02 0.06 (0.00-0.20) K/uL Immature Gran # (Auto) 0.02 0.02 (0.01-0.20) K/uL Sodium 138 138 (136-145) mmol/L Potassium 3.8 3.6 (3.5-5.1) mmol/L Chloride 110 H 108 H (98-107) mmol/L Carbon Dioxide 25 25 (21-32) mmol/L Anion Gap 3 5 (3-11) BUN 9 10 (6-23) mg/dl Creatinine 0.67 0.79 (0.6-1.2) mg/dl Est Cr Clr Drug Dosing 92.5 78.5 ml/min eGFR 110.46 94.53 BUN/Creatinine Ratio 13.4 12.7 (10-20) Glucose 95 129 H (70-99(Fasting)) mg/dl Estimat Average Glucose 97 mg/dl Hemoglobin A1c 5.0 (4.5-5.6) % Calcium 8.3 L 8.8 (8.6-10.3) mg/dl Total Bilirubin 0.6 0.5 (0.2-1.0) mg/dl AST 217 H 25 (13-39) U/L ALT 118 H 12 (7-52) U/L Alkaline Phosphatase 57 45 (34-104) U/L Total Protein 6.1 6.9 (6.0-8.3) gm/dl Albumin 3.3 L 3.9 (3.4-5.0) gm/dl Globulin 2.8 3.0 (2.5-4.0) gm/dl Albumin/Globulin Ratio 1.2 1.3 (0.9-2) Lipase 30 (11-82) U/L HCG, Qual Negative (Negative) Urine Color Yellow Urine Appearance Clear (Clear) Urine pH 6.0 (4.5-7.5) Ur Specific [place] 1.025 (1.000-1.030) Urine Protein Negative (Negative) Urine Glucose (UA) Negative (Negative) Urine Ketones Negative (Negative) Urine Blood Trace-intact H (Negative) Urine Nitrite Negative (Negative) Urine Bilirubin Negative (Negative) Urine Urobilinogen Negative (Negative) Ur Leukocyte Esterase Negative (Negative) Urine WBC (Auto) 0-5 (0-5) /hpf Urine RBC (Auto) 3-5 H (0-2) /hpf U Hyaline Cast (Auto) 0-2 (0-2) /lpf U Epithel Cells (Auto) 6-10 H (0-2) /hpf Urine Bacteria (Auto) None Seen (None Seen) Calcium Oxalate Crystal Present A (None Prsent) Urine Comment Diagnostic Findings Exam(s): US GALLBLADDER EXAM: US Abdomen Limited, Right Upper Quadrant CLINICAL HISTORY: Reason for exam: RUQ pain. OTHER: Other Notes: CBD: PROMINENT, measured UP TO 7.5 mm. RT KID: NO HYDRO. ?STONE WITH TWINKLE COLOR ARTIFACT MP MEASURED 3 mm. TECHNIQUE: Real-time ultrasound of the right upper quadrant with image documentation. COMPARISON: No relevant prior studies available. FINDINGS: Liver: The liver is enlarged and of increased echogenicity. There is a small cluster of cysts noted in the right lobe of the liver adjacent to the gallbladder. It measures 1.6 cm in size.. There is some intrahepatic biliary ductal dilatation. Gallbladder: The gallbladder is distended. There are gallstones within the gallbladder. The gallbladder wall measured 2.7 mm. There is some pericholecystic fluid.. Common bile duct: The common bile duct measured 7.5 mm.. Pancreas: Pancreatic duct is prominent at 3 mm.. Right kidney: There is a 3 mm echogenic focus within the kidney.. No hydronephrosis. IMPRESSION: The gallbladder is distended containing calculi. There is some pericholecystic fluid present. Common bile duct is mildly dilated at 7.5 mm. There is some intrahepatic biliary ductal dilatation. Pancreatic duct is prominent at 3 mm. The liver is enlarged and of increased echogenicity which may be due to fatty infiltration and/or hepatocellular disease. There is a small cluster of cysts noted in the right lobe of the liver adjacent to the gallbladder. There is a possible 3 mm calcification in the right kidney. No evidence of hydronephrosis. EXAM: MR MRCP CLINICAL HISTORY: cbd dilat TECHNIQUE: Multiplanar multisequence magnetic resonance imaging of the abdomen without intravenous contrast. COMPARISON: None. FINDINGS: Liver: Normal size and morphology. Approximately 11x 9mm T2 hyperintense lesion in subcapsular region of segment V of liver adjacent to lavinia gall bladder fossa. Homogeneous signal intensity on T2-weighted images. No focal hepatic lesions. Gallbladder: Well distended with evidence of focal 3 to 4mm T2 hypointense filling defects within and shows mild wall thickening and pericholecystic fat stranding. There is thin rim of fluid surrounding gallbladder Bile Ducts: Intrahepatic and extrahepatic bile ducts are normal in caliber. Common bile duct is normal in caliber with no evidence of strictures or filling defects. No evidence of choledocholithiasis. Pancreas: Normal size and contour. Homogeneous signal intensity on T2-weighted images. No masses or cystic lesions. Pancreatic Duct: Pancreatic duct is normal in caliber. No evidence of ductal dilatation or filling defects. Spleen: Normal size and appearance. Homogeneous signal intensity. Kidneys: Normal size, shape, and position of both kidneys. Homogeneous signal intensity on T2-weighted images. No renal stones, masses, or hydronephrosis. Adrenal Glands: Normal size and morphology bilaterally. No adrenal masses. Surrounding Structures: No evidence of free fluid or abnormal fluid collections in the abdomen. Normal appearance of the visualized bowel loops. IMPRESSION: Features of acute calculus cholecystitis with no obvious perforation. No intra or extrahepatic biliary ductal dilatation. T2 hyperintense lesion in segment V of liver adjacent to gallbladder fossa - likely hepatic cyst
[2024-12-17] MEDS: ACETAMINOPHEN 325 MG TAB PO STA (08:55)
[2024-12-17] MEDS: SODIUM CHLORIDE 0.9% 500 ML IV ONE (08:56)
[2024-12-17] MEDS ORDERED: ONDANSETRON INJ 2 MG/ML 2 ML VIAL ONE (09:40)
[2024-12-17] MEDS ORDERED: LIDOCAINE 2% 2 ML VIAL/AMP(20MG/ML) INFIL ONE (09:40)
[2024-12-17] MEDS ORDERED: ROCURONIUM BROMIDE 10 MG/ML 5 ML VIAL IV ONE (09:40)
[2024-12-17] MEDS ORDERED: DEXAMETHASONE SOD INJ 4 MG/ML VIAL ONE (09:40)
[2024-12-17] MEDS ORDERED: PROPOFOL IV EMULSION 10 MG/ML 20 ML VIAL IV ONE (09:40)
[2024-12-17] MEDS ORDERED: MIDAZOLAM HCL 1 MG/ML 2ML VIAL ONE (09:41)
[2024-12-17] MEDS ORDERED: SUGAMMADEX SODIUM 200 MG/2 ML VIAL IV ONE (09:41)
--- NOTE | 2024-12-17 09:48 | Anesthesiology Consultation ---
Date of Service December 17, 2024 Assessment & Plan Chart Review Chart Review: Acceptable Risk for Surgery and Patient NOT seen in Pre Admission Testing Consults Requested none ASA [id number] Proposed Anesthesia Anesthesia Type: General Risk / Benefits Reviewed With: PT / POA / Parent / Guardian, Accepts Plan and Informed Consent Obtained History Surgery Operation Date: 12/17/24 08:30 Proposed Procedures p Laparoscopic Cholecystectomy - Gilmer Fuentes MD Height/Weight Height: 5 ft 4 in Weight: 56.5 kg Allergies Allergy/AdvReac Type Severity Reaction Status Date / Time sumatriptan Allergy Severe THROAT Verified 12/17/24 01:27 FEELS TIGHT Medications Home Medications Medication Instructions Recorded Confirmed Last Taken onabotulinumtoxinA 200 unit 155 unit .EVERY 90 DAYS 12/17/24 12/17/24 Unknown solution for injection (Botox) Active Medications Generic Name Dose Route Start Last Admin Trade Name Freq PRN Reason Stop Dose Admin Potassium Chloride/Sodium Chloride 20 meq in 1,000 mls @ 100 mls/hr 12/17/24 02:51 12/17/24 03:31 Normal Saline W/20 Meq Kcl IV 12/17/24 12:50 100 mls/hr .Q10H ONE Administration Oxycodone HCl 5 mg 12/17/24 01:25 12/17/24 04:42 Oxycodone Hcl Ir 5 Mg Tab (Immediate Release) PO 12/31/24 01:24 5 mg Q4H PRN Administration Pain NPO Date Last Intake of Fluids: 12/17/24 Time Last Intake of Fluids: 07:00 Last Intake of Fluids Comment: ice chips Date Last Intake of Solids: 12/16/24 Time Last Intake of Solids: 18:00 Past Medical History asthma gerd migraines anemia Hx/o PSVT Hyperglycemia Exercise / Class Metabolic Activity II 4-5 Yardwork/Stairs/Walk up hill Past Anesthesia History No Hx of Anesthesia Complications and No Family Hx of Anesthesia Complications History of PONV No Hx of PONV and No Hx of Motion Sickness Social History Smoking Status: Former smoker Smoking cigarettes per day: half a pack to a pack a day Do You Dip or Chew Tobacco: No Smoking End Date: 2014 Hx Alcohol Use: No Hx Substance Use: No Physical Exam Vital Signs Last Vital Signs Temp 36.7 C 12/16/24 21:49 Pulse 67 12/17/24 07:15 Resp 17 12/17/24 06:28 BP 94/57 L 12/17/24 06:28 Pulse Ox 98 12/17/24 06:28 O2 Del Method Room Air 12/17/24 06:28 Constitutional no acute distress and not cachectic ENMT Mouth: no dentition abnormality Thyromental Distance: < 3.5 Finger Breadths Mallampati Class: II Neck normal visual inspection and trachea midline; neck extension not limited Respiratory normal respiratory effort Auscultation: lungs clear to auscultation bilaterally Cardiovascular Rate/Rhythm: regular rate and regular rhythm Heart Sounds: no murmur Vessels: no carotid bruit Musculoskeletal Spine: normal cervical ROM and no pain with cervical ROM Extremities: extremities normal to inspection; full ROM of extremities Neurologic moves all extremities Motor/Sensory: no sensory deficit Psychiatric Orientation: alert and oriented x 3 Testing Laboratory Results 12/17/24 05:24 12/17/24 05:24 Hemoglobin A1c 5.0 % (4.5-5.6) 12/17/24 05:24 Urine Color Yellow 12/16/24 22:03 Urine Appearance Clear (Clear) 12/16/24 22:03 Urine pH 6.0 (4.5-7.5) 12/16/24 22:03 Ur Specific [place] 1.025 (1.000-1.030) 12/16/24 22:03 Urine Protein Negative (Negative) 12/16/24 22:03 Urine Glucose (UA) Negative (Negative) 12/16/24 22:03 Urine Ketones Negative (Negative) 12/16/24 22:03 Urine Nitrite Negative (Negative) 12/16/24 22:03 Ur Leukocyte Esterase Negative (Negative) 12/16/24 22:03 Urine WBC (Auto) 0-5 /hpf (0-5) 12/16/24 22:03 Urine RBC (Auto) 3-5 /hpf (0-2) H 12/16/24 22:03 U Hyaline Cast (Auto) 0-2 /lpf (0-2) 12/16/24 22:03 U Epithel Cells (Auto) 6-10 /hpf (0-2) H 12/16/24 22:03 Urine Bacteria (Auto) None Seen (None Seen) 12/16/24 22:03
[2024-12-17] MEDS ORDERED: ONDANSETRON INJ 2 MG/ML 2 ML VIAL IV PRN (09:49)
[2024-12-17] MEDS ORDERED: FLUMAZENIL 0.1 MG/1 ML 10 ML VIAL IV PRN (09:49)
[2024-12-17] MEDS ORDERED: NALOXONE HCL 0.4 MG/1 ML VIAL/CARP IV PRN (09:49)
[2024-12-17] MEDS ORDERED: PROMETHAZINE HCL 6.25 MG in SODIUM CHLORIDE 0.9% 50 ML IV PRN (09:49)
[2024-12-17] MEDS ORDERED: ATROPINE SULFATE 0.1 MG/ML 10ML SYR IV PRN (09:49)
--- NOTE | 2024-12-17 10:14 | History & Physical Bridge Note ---
Date of Service December 17, 2024 History & Physical Bridge Note I have examined the patient, reviewed the History & Physical and in the interval since the performance of the History & Physical I have noted the following changes of clinical significance: no changes noted
[2024-12-17] MEDS: LACTATED RINGER'S 1,000 ML IV SCH (10:26)
[2024-12-17] MEDS: BUPIVACAINE/EPINEPHRINE 0.25% 1:200,000 30 ML VIAL ONE (10:58)
[2024-12-17] MEDS ORDERED: KETOROLAC 30 MG/ML VIAL ONE (10:59)
[2024-12-17] MEDS ORDERED: ceFAZolin 330 MG/ML 1 GM VIAL ONE (11:00)
[2024-12-17] MEDS: FLOSEAL HEMOSTATIC MATRIX 10ML TOP ONE (11:18)
--- NOTE | 2024-12-17 11:27 | Post Operative Brief Note ---
Immediate Post Op Note Date of Surgery December 17, 2024 Pre & Post Diagnosis Operation Date: 12/17/24 08:30 preop: Acute cholecystitis Postop: Same I identified the patient and participated in the time-out.: Yes Procedure Operation Date: 12/17/24 08:30 laparoscopic cholecystectomy Surgeon Gilmer Fuentes MD Delivery Clerk SANJUANA Gracia assisted with tissue retraction, camera op, closure Estimated Blood Loss 5 Findings Consistent with Post-Op Diagnosis
--- NOTE | 2024-12-17 11:28 | Operative Report ---
Post Operative Report Pre & Post Diagnosis Operation Date: 12/17/24 08:30 Pre-Op: Acute cholecystitis Postop: Same I identified the patient and participated in the time-out.: Yes Procedure Operation Date: 12/17/24 08:30 laparoscopic cholecystectomy Surgeon Gilmer Fuentes MD Electrostatic Painter SANJUANA Gracia assisted with tissue retraction, camera op, closure Estimated Blood Loss 5 Findings Consistent with Post-Op Diagnosis acute cholecystitis Specimens gallbladder Drains none Anesthesia Type General Complications none Description of Procedure the patient was taken to the operating room, and placed supine on the operating table. A timeout was performed, perioperative antibiotics were administered, SCD boots were placed. After adequate anesthesia and analgesia was obtained, the abdomen was prepped and draped in the normal sterile fashion. Local anesthetic was injected into and around the proposed incision sites. An incision was made with a 15 blade scalpel in the supraumbilical region and carried down to the level of the fascia. The fascia was grasped with a trach hook, and a varies needle was used to enter the abdominal cavity. The abdomen was insufflated to a pressure of 15 mmHg, and a 11 mm trocar was placed in this location. A 10 mm, 30 degree laparoscope was placed into the abdominal cavity, and the abdomen was surveyed. Two 5 mm trochars were placed along the right costal margin, and one 5 mm trocar was placed in the subxiphoid region under direct visualization. The gallbladder was grasped and retracted cephalad and laterally, exposing the triangle of Calot. Dissection began in the triangle with a combination of blunt dissection with the [place] dissector, and judicious use of the hook cautery. The cystic duct and cystic artery were dissected free circumferentially, and a critical view of safety was obtained. The cystic duct and cystic artery were clipped and transected, and the gallbladder was removed from the gallbladder fossa with the hook cautery. The camera was switched to a 5 mm, the gallbladder was placed in an Endo Catch bag, and removed via the supraumbilical port site. The camera was switched back to the 10 mm camera, and the abdomen was surveyed again. Hemostasis was checked and attended, and was excellent. The abdomen was copiously irrigated and suctioned free. Again hemostasis was checked and was excellent. All trochars were removed under direct visualization. The abdomen was d esufflated. The fascia in the 11 mm port site was closed with a 0 Vicryl suture. The skin was closed with a running 4-0 Monocryl subcuticular stitch. Dermabond was applied. The patient tolerated the procedure without complication, and was transferred in stable condition to the PACU. All instrument, needle, and sponge counts were correct at the end of the case. my integration assistant was necessary throughout the procedure for tissue retraction, possible camera operation, and closure of the wounds. I understand that section 1842(b)(7)(D) of the Social Security act generally prohibits Medicare physician fee schedule payment for the services of assistants at surgery in teaching hospitals when qualified residents are available to furnish such services. I certify that the services for which payment is claimed were medically necessary and that no qualified resident was available to perform the services. I further understand that these services are subject to postpayment review by the Medicare carrier. I attest to the content of the Intraoperative Record and any orders documented therein. Any exceptions are noted below.
--- NOTE | 2024-12-17 12:33 | Anesthesiology Progress Note ---
Date of Service December 17, 2024 Anesthesia Post Procedure Vital Signs Vital Signs: Temp Pulse Pulse Resp BP BP BP 12/17/24 12:30 73 18 127/73 12/17/24 12:15 36.4 C L 72 18 116/68 12/17/24 12:05 60 22 118/71 12/17/24 11:55 81 20 108/74 12/17/24 11:46 36.3 C L 90 26 H 121/63 12/17/24 07:15 67 12/17/24 06:28 60 17 94/57 L 12/17/24 02:45 72 16 109/72 12/17/24 02:30 68 12/17/24 01:00 80 20 111/54 L 12/16/24 23:55 74 16 105/63 12/16/24 22:47 83 20 111/65 12/16/24 22:24 75 12/16/24 21:49 36.7 C 66 16 138/69 Pulse Ox O2 Del Method O2 Flow Rate 12/17/24 12:30 100 Room Air 0 12/17/24 12:15 100 Room Air 0 12/17/24 12:05 100 Room Air 0 12/17/24 11:55 100 Oxymask 4 12/17/24 11:46 100 Oxymask 8 12/17/24 07:15 12/17/24 06:28 98 Room Air 12/17/24 02:45 98 12/17/24 02:30 12/17/24 01:00 96 12/16/24 23:55 100 12/16/24 22:47 100 12/16/24 22:24 12/16/24 21:49 99 Room Air Pain Intensity Abdomen: Pain Intensity: 4 Transfer of Care Handoff Completed per policy Notes Mental Status: alert / awake / arousable Patient Amnestic to Procedure: Yes Nausea / Vomiting: adequately controlled Pain: adequately controlled Airway Patency, RR, SpO2: stable & adequate BP & HR: stable & adequate Hydration State: stable & adequate Anesthetic Complications: no major complications apparent
[2024-12-17] MEDS ORDERED: diphenhydrAMINE Capsule 25 MG CAP PO PRN (13:56)
[2024-12-17] MEDS: KETOROLAC TROMETHAMINE 15 MG/ML VIAL IV PRN (15:25)
--- NOTE | 2024-12-17 16:07 | Hospitalist Progress Note ---
Date of Service December 17, 2024 Assessment & Plan (1) Acute calculous cholecystitis: Plan: Assessment and plan below following discussion of case with ED provider and reviewing patient history/pertinent normal/abnormal diagnostic test results. Recurrent calculous cholecystitis MRCP: Features of acute calculus cholecystitis with no obvious perforation. No intra or extrahepatic biliary ductal dilatation. -- s/p Lap Ligia stable after surgery soft low fat diet d/c IV abx per Gen Surg repeat LFTs tomorrow -- anticipate d/c home tomorrow Hepatomegaly incidental finding on imaging hx PSVT mild MR bronchial asthma, stable DVT prophylaxis. SCDs Full code Admission and Anticipated Discharge Date Admission Date: December 17, 2024 Subjective seen resting in bed, comfortable sitting up states she feels fine overall has some mild pain over the RUQ no nausea, chills no other symptoms Review of Systems Review of Systems: all noted and negative except for above Physical Exam Physical Exam: General- oriented x 3, not in distress, speaks in sentences with no effort or accessory muscle use Eyes- anicteric Neck- no JVD Lungs- clear breath sounds bilaterally, no rales/wheezes Heart- normal rate, regular rhythm; no murmurs Abdomen- normal bowel sounds, nondistended, soft, very mild RUQ tenderness Extremities- no pretibial edema, no calf tenderness Neuro- alert, oriented x 3; no gross focal neurologic deficits Skin- warm & dry Results & Data Results & Data Vital Signs (Past 12 Hours) Vital Signs Temp Pulse Pulse Pulse Resp BP BP 12/17/24 15:30 36.6 C 62 14 112/63 12/17/24 15:00 36.6 C 64 14 118/78 12/17/24 14:30 12/17/24 14:30 36.6 C 64 14 104/68 12/17/24 14:21 60 18 107/61 12/17/24 13:30 55 L 16 107/64 12/17/24 13:00 58 L 14 100/68 12/17/24 12:45 48 L 19 102/74 12/17/24 12:30 73 18 127/73 12/17/24 12:15 36.4 C L 72 18 116/68 12/17/24 12:05 60 22 118/71 12/17/24 11:55 81 20 108/74 12/17/24 11:46 36.3 C L 90 26 H 121/63 12/17/24 07:15 67 12/17/24 06:28 60 17 94/57 L Pulse Ox O2 Del Method O2 Flow Rate 12/17/24 15:30 100 Room Air 12/17/24 15:00 100 Room Air 12/17/24 14:30 Room Air 12/17/24 14:30 99 Room Air 12/17/24 14:21 99 Room Air 0 12/17/24 13:30 99 Room Air 0 12/17/24 13:00 100 Room Air 0 12/17/24 12:45 100 Room Air 0 12/17/24 12:30 100 Room Air 0 12/17/24 12:15 100 Room Air 0 12/17/24 12:05 100 Room Air 0 12/17/24 11:55 100 Oxymask 4 12/17/24 11:46 100 Oxymask 8 12/17/24 07:15 12/17/24 06:28 98 Room Air all noted and reviewed including below
[2024-12-17] MEDS: PIPERACILLIN/TAZOBACTAM 4.5 GM/100 ML BAG IV SCH (16:26)
[2024-12-17] MEDS: ACETAMINOPHEN 500 MG TAB PO PRN (19:32)
[2024-12-18 07:25] LABS: Hematocrit (blood only) 33.6 % (37.0-47.0); Hemoglobin 11.4 g/dl (12.0-16.0); Immature Granulocytes # (auto) 0.07 K/uL (0.01-0.20); Immature Granulocytes % (auto) 0.6 %; Mean Corpuscular Hemoglobin 31.3 pg (25.0-34.0); Mean Corpuscular Volume 92.3 fL (80.0-100.0); Platelet Count 164 K/uL (130-400); RDW Standard Deviation 40.7 fL (36.4-46.3); Red Blood Count 3.64 M/uL (4.20-5.40); White Blood Count 12.61 K/ul (4.8-10.8)
[2024-12-18 07:38] VITALS: BP 110/69; PULSE 60; RESP 19; TEMP 97.9; O2SAT 100
[2024-12-18 07:44] LABS: Alanine Aminotransferase 76.0 U/L (7-52); Albumin Level 3.2 gm/dl (3.4-5.0); Alkaline Phosphatase 52.0 U/L (34-104); Anion Gap 6.0 (3-11); Bilirubin,Total 0.4 mg/dl (0.2-1.0); Blood Urea Nitrogen 9.0 mg/dl (6-23); Calcium 8.8 mg/dl (8.6-10.3); Carbon Dioxide 24.0 mmol/L (21-32); Chloride 109.0 mmol/L (98-107); Creatinine Clr Calc Pharmacy 83.8 ml/min; Glucose 94.0 mg/dl (70-99(Fasting)); Potassium 3.9 mmol/L (3.5-5.1); Sodium 139.0 mmol/L (136-145); Total Protein 6.0 gm/dl (6.0-8.3)
[2024-12-18] MEDS: KETOROLAC TROMETHAMINE 15 MG/ML VIAL IV PRN (07:46)
--- NOTE | 2024-12-18 09:02 | Discharge Summary ---
Discharge Summary Date of Service December 18, 2024 Principal Dx & Hospital Course #1 = Principal Diagnosis (1) Acute calculous cholecystitis: Plan Patient 44-year-old female who had 2 previous bouts of gallbladder symptoms. Presented to the emergency room with acute abdominal pain. Imaging in the ER was consistent with some dilated common bile duct. Patient was admitted to the hospital. She was placed on IV antibiotics. Surgical consultation was obtained. MRCP was performed which was consistent with acute calculous cholecystitis but no definitive biliary ductal obstruction. Patient underwent laparoscopic cholecystectomy on 12/17/2024. Her postoperative course was uneventful. On the morning of discharge vital signs are stable. LFTs had significantly improved. She was tolerating a diet. Had minimal surgical site pain. She can be discharged home to follow-up with outpatient providers and surgeon. Notes For Next Care Provider Follow-up with PCP and surgeon Medication Changes From Visit Percocet as needed for pain Admission HPI Per Admitting Provider History obtained from patient and records. Medical history significant for PSVT, mild MR, bronchial asthma, migraine, GERD, cholelithiasis, past tobacco abuse. Patient dealing with right upper quadrant pain the last couple of months. Found to have early acute cholecystitis on consultation at [facility] ER last month. Patient discharged on antibiotic course. Outpatient General Surgery referral recommended. Patient [place] [facility] [place] 3 weeks ago. Laparoscopic cholecystectomy scheduled next month. Patient advised to go to ER with recurrent/symptoms. Patient had worsening RUQ discomfort reminiscent of gallstone attack from last night. Some nausea without emesis. No fever, no chills. Denies fatty food intake. Denies chest pain, SOB. Medical History as above Surgical History : Dental surgery, oophorectomy/salpingectomy Family History : Lung cancer, bronchial asthma, colon cancer, thyroid cancer, breast cancer Personal/Social history : Past tobacco abuse, no EtOH intake, [employer] employee Admission Exam Per Admitting Provider See H&P Discharge Exam Constitutional: Alert HEENT: Mucous membranes moist. Lungs: Clear to auscultation, decreased, no wheezes rales or rhonchi CV: S1-S2, regular Abdomen: Soft, surgical incisions clean and dry, closed with glue, no erythema or inflammation. Mild generalized tenderness as expected postop Extremities: No significant edema Neuro: No focal deficits Psych: Cooperative, normal mood Updated Medication List Medication Instructions Recorded Confirmed Type onabotulinumtoxinA 200 unit 155 unit .EVERY 90 DAYS 12/17/24 12/17/24 History solution for injection (Botox) oxycodone-acetaminophen 5 mg-325 1 tab PO Q6H PRN pain #10 tabs 12/17/24 Rx mg tablet Hospital Stay Data Consultations 12/17/24 01:00 Consult General Surgery Routine 12/17/24 01:04 ED Decision to Admit Stat Procedures Performed Operation Date: 12/17/24 08:30 Actual Procedures p Laparoscopic Cholecystectomy(Not Applicable) - Gilmer Fuentes MD Diagnostic Imagining Performed 12/16/24 22:19 US gallbladder Stat 12/17/24 02:56 MR MRCP Stat Reviewed imaging, laboratory and diagnostic studies. Pertinent findings as below. WBCs 12.6 Hemoglobin 11.4 Platelets of 164 Electrolytes stable Creatinine 0.74 Total bilirubin 0.4 AST 54, significantly improved ALT 76, significantly improved Pending Results Patient Have Any Pending Studies at Discharge: Yes (pathology, will be reviewed at postop visit) Discharge Instructions Given to Patient (Per Discharging Provider) Post-Surgical ~Discharge Instructions Activity Recommendations: - lifting limitation: (20 pounds for 2 weeks), - exercise/sex/sports limit: (nonstrenuous for 2 weeks), - driving or machine use limit: (none for 1 week), - Shower/bathe limit: (may shower beginning tomorrow) Diet: - Resume previous diet SPECIAL CARE INSTRUCTIONS: - May shower in 24 hours. Let water run over area and pat dry. - Leave surgical glue on incisions, this will fall off on its own. - Call the surgeon's office with any questions or concerns - - (ex. temperature higher than 101 degrees F, excessive bleeding or pain). MEDICATIONS: - Resume previous medications unless instructed otherwise by your surgeon. - Ibuprofen 600 mg every 6 hours with food - Percocet 1 every 6 hours, as needed for moderate to severe pain - Recommend daily stool softener (Colace) while taking narcotic pain medication to prevent constipation or straining. Drink plenty of water daily. FOLLOW UP VISIT: - If not already scheduled, please call the office to schedule a two week follow-up appointment. Office number Total Time Total Time Spent Total Time Spent (In Minutes): 20
== END 2024-12-18 10:54 | disposition home or self-care (01) | DRG 419 ==
LOC: ED 21:38 → SUATTDRO 12-17 02:56 → EDINP 12-17 02:56 → 3W 12-17 14:30